=== PATIENT | male | born 1990 | race Caucasian/White ===

== ENCOUNTER 2020-05-20 14:46 | Emergency (ER) | payer MEDICAID ==
[~2020-05-20] VITALS: Ht 182.9 cm; Wt 79.4 kg
[2020-05-20 14:49] VITALS: BP_SYST 123
[2020-05-20 15:13] VITALS: BP_SYST 123
== END 2020-05-20 15:13 ==
LOC: SED 14:46
DX: Z02.89 Encounter for other administrative examinations (principal); R05 Cough; R10.9 Unspecified abdominal pain
CPT/HCPCS: 99283